=== PATIENT | male | born 1935 | race Caucasian/White ===

== ENCOUNTER 2017-03-05 12:33 | Inpatient (IN) | payer OTHER ==
[~2017-03-05] VITALS: Ht 167.6 cm; Wt 81.2 kg
[~2017-03-05 12:33] MED LIST: ASA81BEC PO; AVODART0.5 MG PO; CIPROFLOXACIN500 M1 PO; CITRATE OF MAG296 ML PO; COLACE100 MG PO; FISH OIL 1,001000 M2 PO; LEVOTHYROXINE 0.1 MG PO; MOEXIPRIL-HCTZ1 EACH PO; NAMENDA XR28 MG PO; PROTONIX40 M1 PO; SYSTANE BALANCE10 ML; TOPROL XL25 MG PO; TRAVOPROST 0.02.5 ML; ZOCOR40 MG PO
[2017-03-05 12:36] VITALS: BP 112/74
[2017-03-05] MEDS ORDERED: FLOMAX0.4 MG PO (12:56)
[2017-03-05] MEDS ORDERED: ARICEPT 5 MG TAB5 MG PO (12:57)
[2017-03-05] MEDS ORDERED: DEPAKOTE 250MG250 M1 PO (12:58)
[2017-03-05 14:26] LABS: ABSOLUTE NEUTROPHILS 12.3 thou/uL (1.4-8.2); BASOPHILS 0.5 % (0.0-2.0); EOSINOPHILS 0.2 % (0.0-3.0); HEMATOCRIT 41.6 % (42.0-52.0); HEMOGLOBIN 13.8 gm/dL (14.0-18.0); LYMPHOCYTES 14.3 % (24.0-44.0); MCH 28.5 pg (26.0-34.0); MCHC 33.2 g/dL (28.0-37.0); MCV 85.8 fL (80.0-100.0); MONOCYTES 10.1 % (1.0-8.0); PLATELET COUNT 183 thou/uL (150-400); POLYS 74.9 % (36.0-66.0); RBC 4.84 mil/uL (4.50-6.00); RDW 17.1 % (10.5-14.5); WBC 16.4 thou/uL (4.0-11.0)
[2017-03-05 14:30] LABS: MANUAL DIFF NO
[2017-03-05 14:30] LABS: URINE BILIRUBIN NEGATIVE (Negative); URINE BLOOD TRACE (Negative); URINE COLOR YELLOW; URINE GLUCOSE-RANDOM* NEGATIVE (Negative); URINE KETONES NEGATIVE (Negative); URINE LEUKOCYTES-REFLEX NEGATIVE (Negative); URINE PROTEIN (DIPSTICK) TRACE (Negative); URINE SPECIFIC GRAVITY 1.025 (1.003-1.035); URINE UROBILINOGEN 0.2 E.U./dl (0.2-1.0)
[2017-03-05 14:34] LABS: CREATININE 4.1 mg/dL (0.7-1.3)
[2017-03-05 15:54] VITALS: BP 108/60
[2017-03-05 18:05] VITALS: BP 123/69
[2017-03-05 19:39] VITALS: BP 87/49
[2017-03-06 03:56] VITALS: BP 110/84
[2017-03-06 04:45] LABS: ABSOLUTE NEUTROPHILS 6.1 thou/uL (1.4-8.2); BASOPHILS 0.4 % (0.0-2.0); EOSINOPHILS 1.7 % (0.0-3.0); HEMATOCRIT 35.9 % (42.0-52.0); LYMPHOCYTES 30.2 % (24.0-44.0); MCH 28.7 pg (26.0-34.0); MCHC 33.3 g/dL (28.0-37.0); MCV 86.3 fL (80.0-100.0); MONOCYTES 9.4 % (1.0-8.0); PLATELET COUNT 175 thou/uL (150-400); POLYS 58.3 % (36.0-66.0); RBC 4.16 mil/uL (4.50-6.00); RDW 16.9 % (10.5-14.5); WBC 10.4 thou/uL (4.0-11.0)
[2017-03-06 04:49] LABS: MANUAL DIFF NO
[2017-03-06 05:14] LABS: ALBUMIN 2.5 g/dL (3.4-5.0); CALCIUM 9.2 mg/dL (8.5-10.1); CREATININE 2.7 mg/dL (0.7-1.3); MAGNESIUM 2.1 mg/dL (1.8-2.4); POTASSIUM 3.9 mmol/L (3.5-5.1); TOTAL BILIRUBIN 0.7 mg/dL (<0.1-1.0); TOTAL PROTEIN 5.7 g/dL (6.4-8.2)
[2017-03-06 08:00] VITALS: BP 115/77
[2017-03-06 16:00] VITALS: BP 134/53
[2017-03-06 20:00] VITALS: BP 151/82
[2017-03-07 05:30] VITALS: BP 124/94
[2017-03-07 06:52] LABS: CALCIUM 9.9 mg/dL (8.5-10.1); POTASSIUM 3.8 mmol/L (3.5-5.1)
[2017-03-07 07:02] LABS: CREATININE 1.6 mg/dL (0.7-1.3)
[2017-03-07 08:03] VITALS: BP 123/86
== END 2017-03-07 15:12 | DRG 682 ==
LOC: ER 12:33 → EROBS 15:23 → 4E 15:23
PROVIDERS: Emergency Medicine; Nurse Practitioner
DX: N17.9 Acute kidney failure, unspecified (principal); G93.41 Metabolic encephalopathy; F02.81 Dementia in other diseases classified elsewhere, unspecified severity, with behavioral disturbance; E46 Unspecified protein-calorie malnutrition; R19.7 Diarrhea, unspecified; I10 Essential (primary) hypertension; Z66 Do not resuscitate; E86.0 Dehydration; K21.9 Gastro-esophageal reflux disease without esophagitis; E03.9 Hypothyroidism, unspecified; D72.829 Elevated white blood cell count, unspecified; H40.9 Unspecified glaucoma; I25.10 Atherosclerotic heart disease of native coronary artery without angina pectoris; N40.1 Benign prostatic hyperplasia with lower urinary tract symptoms; N13.9 Obstructive and reflux uropathy, unspecified; K59.00 Constipation, unspecified; R33.8 Other retention of urine; E78.5 Hyperlipidemia, unspecified; G30.9 Alzheimer's disease, unspecified; Z87.891 Personal history of nicotine dependence; Z95.5 Presence of coronary angioplasty implant and graft; Z79.82 Long term (current) use of aspirin; Z79.899 Other long term (current) drug therapy; Z88.0 Allergy status to penicillin; Z88.8 Allergy status to other drugs, medicaments and biological substances
CPT/HCPCS: 10084